=== PATIENT | female | born 1950 | race Caucasian/White ===

== ENCOUNTER → 2023-07-27 12:22 | Outpatient (CLI) | payer MEDICARE, OTHER, SELFPAY ==
--- NOTE | 2023-07-27 | DI.MRI.S_ITS ---
PROCEDURE: MR SHOULDER RT WO CON INDICATIONS: ROTATOR CUFF SYNDROME/R/O ROTATOR CUFF TEAR TECHNIQUE: Noncontrast oblique coronal T2 fast spin echo with fat saturation, oblique sagittal T1 spin echo and T2 fast spin echo with fat saturation, axial T1 spin echo and T2 fast spin echo with fat saturation through the shoulder. COMPARISON: [facility], CR, XR SHOULDER 2+ VIEWS RIGHT, 07/04/2023, 16:14. FINDINGS: Image quality: Excellent. Rotator cuff: There is full-thickness tear of the supraspinatus tendo. There is tendon retraction and moderate to severe supraspinatus muscle atrophy. There is high-grade partial-thickness tear of the infraspinatus tendon. There is mild infraspinatus muscle atrophy. There is moderate subscapularis tendinosis without high-grade tendon tear. Teres minor tendon appears intact. Bones and bursae: No bone marrow contusions or fractures. There is moderate acromioclavicular and glenohumeral joint degeneration. The acromion demonstrates conventional anatomy, without an os acromiale. There is subcoracoid bursal fluid consistent with bursitis. There is a complex fluid structure or cyst in the posterior aspect of the glenohumeral joint measuring 1.0 x 4.1 x 2.1 cm, extending into the spinoglenoid notch. Capsule and soft tissues: Mild degenerative labral fraying. The long head of the biceps tendon demonstrates normal location and morphology. The rotator interval appears normal, without fibrosis. The coracohumeral ligament is normal in thickness. IMPRESSION: 1. Full-thickness tear of the supraspinatus tendon with tendon retraction and muscle atrophy. 2. High-grade partial-thickness tear of the infraspinatus tendon. No tendon retraction. There is mild infraspinatus muscle atrophy. 3. Moderate subscapularis tendinosis without high-grade tendon tear. 4. Subcoracoid bursitis. 5. Moderate acromioclavicular and glenohumeral joint degeneration. 6. A 1.0 x 4.1 x 2.1 cm complex fluid collection or cyst in the posterior aspect of the glenohumeral joint, extending into the spinoglenoid notch. Differential diagnoses are loculated joint effusion, ganglion cyst, synovial cyst or paralabral cyst. There is no evidence for suprascapular nerve entrapment. Dictated by: Alyson Sánchez M.D. on 07/27/2023 at 15:41 Approved by: Alyson Sánchez M.D. on 07/27/2023 at 16:00
== END ==
PROVIDERS: Referring Provider Orthopaedic Surgery; Visit Provider Orthopaedic Surgery
DX: M75.121 Complete rotator cuff tear or rupture of right shoulder, not specified as traumatic (principal); M75.51 Bursitis of right shoulder; M19.011 Primary osteoarthritis, right shoulder; M62.521 Muscle wasting and atrophy, not elsewhere classified, right upper arm
CPT/HCPCS: 73221

== ENCOUNTER → 2024-06-17 16:35 | Outpatient (CLI) | payer MEDICARE, OTHER, SELFPAY ==
--- NOTE | 2024-06-17 16:37 | DI.MRI.S_ITS ---
BREAST MRI OF BOTH BREASTS- POST LUMPECTOMY: 06/17/2024 CLINICAL: Left breast Cancer. Comparison is made to exams dated: 05/23/2024 ultrasound biopsy, 05/16/2024 ultrasound, 05/23/2024 mammogram, 04/19/2024 mammogram, 04/13/2023 mammogram, and 05/16/2024 mammogram - [facility]. INDICATIONS: HX BREAST CANCER TECHNIQUE: The patient was placed prone in a dedicated breast imaging coil. Precontrast axial STIR and 3D FLASH without fat saturation sequences were obtained. Both before and after bolus injection of contrast, sequential 1-minute axial 3D FLASH with fat saturation sequences for 3 time points, with subtraction images and maximum intensity projections (MIP's) generated. Delayed sagittal FLASH images with fat saturation were also obtained. Computer-aided detection, including computer algorithm analysis of MRI image data for lesion detection and characterization, pharmacokinetic analysis, with further physician review for interpretation, was performed. FINDINGS: Image quality: Excellent. There is minimal background parenchymal enhancement. There are scattered fibroglandular elements in both breasts. Right breast: No suspicious mass or abnormal non-mass enhancement in the right breast. No axillary or internal mammary lymphadenopathy. Left breast: Metal susceptibility artifact is seen at multiple foci in the superior left breast consistent with surgical clips as seen on the prior mammograms. Biopsy clip is seen at the 11:30 position middle depth approximately the 7 cm from the nipple related to the recent percutaneous biopsy with malignant results. There is an associated irregular enhancing mass with irregular margins that is partially obscured by metal artifact, measuring up to 0.6 x 0.5 cm in maximum axial dimensions on the current exam () by 0.5 cm craniocaudal (). Measurements may be exaggerated due to metal artifact and post biopsy changes. Kinetic curve assessment demonstrates rapid enhancement and mixed delayed kinetics with some washout. No additional suspicious mass or abnormal non-mass enhancement in the left breast. No axillary or internal mammary lymphadenopathy. Miscellaneous: No significant abnormality is seen in the included portions of the anterior chest and upper abdomen. IMPRESSION: [id number] MALIGNANCY 1. Known biopsy proven malignancy in the left breast 11:30 position measures up to 0.6 cm on the current exam, but is partially obscured by metal artifact that may exaggerate the true size. 2. No MR evidence of malignancy in the right breast. 3. No axillary or internal mammary lymphadenopathy. BIRADS 6: Known biopsy-proven malignancy. This exam was interpreted at Station ID: [id number]. Electronically Signed By: Kalia Yoder M.D. ar/:06/19/2024 12:04:16 ACR BI-RADS Category 6: [id number] Malignancy [id number]
== END ==
PROVIDERS: Referring Provider Surgery; Visit Provider Surgery
DX: C50.212 Malignant neoplasm of upper-inner quadrant of left female breast (principal)
CPT/HCPCS: 77049; A9579

== ENCOUNTER → 2024-07-15 14:42 | Outpatient (CLI) | payer MEDICARE, OTHER, SELFPAY ==
--- NOTE | 2024-07-15 14:44 | DI.RAD.S_ITS ---
PROCEDURE: XR DEXA AXIAL SKELETON INDICATIONS: OSTEOPOROSIS SCREENING COMPARISON: None. FINDINGS: Lumbar Spine: Bone mineral density 1.187 g/cm2, T score 1.3. Left Hip: Bone mineral density 0.969 g/cm2, T score 0.2. Left Femoral Neck: Bone mineral density 0.779 g/cm2, T score -0.6. Right Hip: Bone mineral density 1.000 g/cm2, T score 0.5. Right Femoral Neck: Bone mineral density is 0.790 g/cm2, T score -0.5. Fracture Risk Calculation (when applicable): FRAX score not reported due to T-scores greater than -1.0. (T score greater or equal to -1.0 to: NORMAL) (T score from -1.1 to -2.4: OSTEOPENIA) (T score less than or equal to -2.5: OSTEOPOROSIS) IMPRESSION: By WHO criteria, patient has normal bone mineral density. Follow-up guidelines as follows: Osteoporosis: Consider a repeat DEXA and Vertebral Fracture Assessment (VFA) exam in 2 years or sooner if medically necessary, to reassess this patient's status. Osteopenia: Consider a repeat DEXA in 2-3 years to reassess this patient's status, or if there is a new clinical indication. Normal: Consider a repeat DEXA in 5 years or sooner, or if there is a new clinical indication. All treatment decisions require clinical judgment and consideration of individual patient factors, including patient preferences, comorbidities, previous drug use, risk factors not captured in the FRAX model (e.g., frailty, falls, vitamin D deficiency, increased bone turnover, interval significant decline in bone density ) and possible under- or over-estimation of fracture risk by FRAX. In addition, the NOF Guide recommends that FDA-approved medical therapies be considered in postmenopausal women and men age >= 50 years with a: * Hip or vertebral (clinical or morphometric) fracture * T-score of <=-2.5 at the spine or hip * Ten-year fracture probability by FRAX of >= 3% for hip fracture or >=20% for major osteoporotic fracture. People with diagnosed cases of osteoporosis or at high risk for fracture should have regular bone mineral density tests. For patients eligible for Medicare, routine testing is allowed once every 2 years. The testing frequency can be increased to one year for patients who have rapidly progressing disease, those who are receiving or discontinuing medical therapy to restore bone mass, or have additional risk factors. Approved by: Kalia Yoder M.D. on 07/15/2024 at 17:18
== END ==
PROVIDERS: PCP Family Medicine
DX: C50.912 Malignant neoplasm of unspecified site of left female breast (principal); Z78.0 Asymptomatic menopausal state; Z92.23 Personal history of estrogen therapy
CPT/HCPCS: 77080